=== PATIENT | female | born 1960 | race Caucasian/White ===

== ENCOUNTER 2025-06-29 11:06 | Emergency (ER) | payer MEDICARE, SELFPAY ==
[2025-06-29 11:08] VITALS: BMI 24.7
--- NOTE | 2025-06-29 11:14 | XR_ITS ---
Examination: Foot, right, 3 views Technique: AP, oblique, lateral views foot, 3 views Date and time of exam: June 29, 2025, 1121 hours INDICATIONS: History of foot fracture April 2025 FINDINGS: Healing fracture proximal phalanx fifth digit with satisfactory alignment No foreign body No dislocation IMPRESSION: Healing fracture proximal phalanx fifth digit with satisfactory alignment
[2025-06-29 11:36] VITALS: BP 129/85; PULSE 79; RESP 18; TEMP 36.7; O2SAT 96
--- NOTE | 2025-06-29 12:15 | PD.EDANKLE ---
Lower Extremity Injury RME/HPI General Chief Complaint: Ankle/Foot Injury Stated Complaint: RIGHT GREAT TOE PAIN HIT ON BARSTOOL Time Seen by Provider: 06/29/25 11:12 Arrival date/time: 06/29/25 11:06 65-year-old female presents to the emergency department for complaints of RIGHT great toe pain patient reports that she accidentally hit her toe on a barstool patient reports pain with movement and with walking Limitations: no limitations Related Data Allergies Allergy/AdvReac Type Severity Reaction Status Date / Time Sulfa (Sulfonamide Allergy Verified 06/29/25 11:09 Antibiotics) Review of Systems Review of Systems Systems Reviewed: All systems reviewed, normal except as documented Constitutional Constitutional: Reports system reviewed and no additional complaints, except as documented, Denies fever(s) and Denies headache(s) Eyes Eyes: Reports system reviewed and no additional complaints, except as documented and Denies blurry vision ENT Ears, Nose, Mouth, and Throat: Reports system reviewed and no additional complaints, except as documented, Denies headache(s), Denies nasal congestion and Denies nasal discharge Cardiovascular Cardiovascular: Reports system reviewed and no additional complaints, except as documented, Denies chest pain and Denies dyspnea Respiratory Respiratory: Reports system reviewed and no additional complaints, except as documented, Denies chest congestion, Denies cough and Denies dyspnea Gastrointestinal Gastrointestinal: Reports system reviewed and no additional complaints, except as documented and Denies abdominal pain Musculoskeletal Musculoskeletal: Reports system reviewed and no additional complaints, except as documented, Reports arthralgias (Right foot pain), Denies deformity, Denies numbness, Denies stiffness and Denies tingling Integumentary/Breasts Skin/Breast: Reports system reviewed and no additional complaints, except as documented and Denies rash Neurologic Neurologic: Reports system reviewed and no additional complaints, except as documented, Reports as per HPI, Denies headache(s), Denies numbness and Denies tingling Past Medical History Social History SMOKING STATUS: Never smoker ED Exam General Limitations: Present no limitations General appearance: Present alert and in no apparent distress Head Head exam: Present atraumatic, normocephalic and normal inspection Eye Eye exam: Present normal appearance, PERRL and EOMI; Absent conjunctival injection ENT ENT exam: Present normal exam, normal oropharynx and mucous membranes moist Neck Neck exam: Present normal inspection, full ROM and trachea midline Chest Chest inspection: Present normal inspection and symmetric chest wall rise Respiratory Respiratory exam: Present normal lung sounds bilaterally Cardiovascular Cardiovascular exam: Present regular rate, normal rhythm and normal heart sounds Abdominal Exam Abdominal exam: Present soft and normal bowel sounds Extremities Exam Extremities exam: Present full ROM, tenderness, normal capillary refill and joint swelling (Right great toe pain) Back Exam Back exam: Present normal inspection and full ROM Neurological Exam Neurological exam: Present alert, oriented X3 and CN II-XII intact Psychiatric Psychiatric exam: Present normal affect and normal mood Skin Skin exam: Present warm, dry, intact and normal color Course Quality Measures none Orders Category Date Time Status XR foot comp RT min 3V Stat Exams 06/29/25 11:14 Completed Vital Signs Vital signs: Vital Signs Temperature 98.1 F 06/29/25 11:36 Pulse Rate 79 06/29/25 11:36 Respiratory Rate 18 06/29/25 11:36 Blood Pressure 129/85 H 06/29/25 11:36 Pulse Oximetry (%) 96 06/29/25 11:36 Oxygen Delivery Method Room Air 06/29/25 11:36 O2 saturation 96% room air within normal limits Extremity Injury, Lower MDM Narrative MDM Narrative:: 65-year-old female presents to the emergency department for complaints of RIGHT great toe pain patient reports that she accidentally hit her toe on a barstool patient reports pain with movement and with walking On exam patient well-appearing patient does not appear toxic no acute distress Patient has no deformities of toes Imaging obtained no acute fracture or dislocation noted Patient discharged home in no distress to follow-up with primary care doctor in the next 24 to 48 hours and for any worsening symptoms to return to the ER immediately Patient data External records reviewed:: [facility] previous records Clinical information provided by:: patient Social determinants that could affect healthcare access:: none Patient has the following chronic illnesses:: See history How is presenting disease/condition affected by chronic disease/condition?: uneffected by Evaluation data The following diagnostics were reviewed and interpreted by me:: radiology exam(s) Lab and/or radiology exams considered but not ordered:: Radiology obtained Interpretation Summary: Reviewed by me Medications / Prescriptions Medications or Prescriptions considered but not ordered:: Given Medication administrations:: No meds Consultations Consultation(s) initiated? (list below): No Diagnosis Most likely diagnosis given after review of the tests above:: No med Admission Indicated Admission indicated?: not indicated Admission Request Was there a request for admission?: No Disposition Plan Disposition Plan: Discharge Discharge Attestation Discharge Attestation: The patient and all family members were given an opportunity to ask questions and understood the discharge instructions. Discharge instructions specifically effects, indications for sooner follow up or return to the emergency department, and the expected course of current diagnosis. Patient condition: Stable Discharge Plan Plan Patient Disposition: HOME (Self Care) Discharge Disposition comment: Stable Problem List Clinical Impression: Contusion of toe of right foot Patient/Caregiver Discharge Instructions Education Materials: ED Contusion, Lower Extremity Additional Instructions: Please follow up with your primary care doctor in the next 24-48hrs for any worsening symptoms return here immediately Print Language: Greek Stand Alone Forms: Melissa Award Info., Patient Portal Info Letter PA/KEVIN Supervising Physician CAROLINE/KEVIN Supervising Physician: Dr. negron
== END 2025-06-29 13:05 | disposition home or self-care (01) ==
LOC: SERX 12:24
PROVIDERS: Emergency Provider Nurse Practitioner Primary Care
DX: S90.111A Contusion of right great toe without damage to nail, initial encounter (principal); W22.8XXA Striking against or struck by other objects, initial encounter
CPT/HCPCS: 73630; 99283